=== PATIENT | female | born 1980 | race Caucasian/White ===

== ENCOUNTER 2018-03-22 11:41 | Emergency (ER) | payer SELFPAY ==
[~2018-03-22] VITALS: Ht 162.6 cm; Wt 64.0 kg
[2018-03-22] MEDS ORDERED: HYDROCODONE/ACETAMINOPHEN 5/325MG TABLET PO ONE (14:30)
[2018-03-22 16:03] VITALS: BP 109/73
== END 2018-03-22 16:08 | disposition home or self-care (01) ==
LOC: ER 11:41
DX: S70.02XA Contusion of left hip, initial encounter (principal); S30.0XXA Contusion of lower back and pelvis, initial encounter; S10.83XA Contusion of other specified part of neck, initial encounter; V49.49XA Driver injured in collision with other motor vehicles in traffic accident, initial encounter; Y93.89 Activity, other specified; Y92.410 Unspecified street and highway as the place of occurrence of the external cause
CPT/HCPCS: 72070; 72100; 73522; 81025; 99283